=== PATIENT | female | born 1985 | race American Indian/Alaskan Native ===

== ENCOUNTER 2018-08-24 09:05 | Outpatient (CLI) | payer OTHER | END 2018-08-24 10:06 | disposition home or self-care (01) | LOC: NST 09:05 | DX: Z34.83 Encounter for supervision of other normal pregnancy, third trimester (principal) ==

== ENCOUNTER 2018-10-02 10:22 | Inpatient (IN) | payer OTHER ==
[~2018-10-02] VITALS: Ht 167.6 cm; Wt 91.6 kg
[2018-10-28] MEDS ORDERED: PRENATAL TABLE1 EAC1 PO (14:11)
== END 2018-10-31 12:06 | DRG 768 ==
LOC: OB/GYN 10-06 10:15 → LDR 10-28 13:23 → OB/GYN 10-29 01:58
PROVIDERS: ADMIT Obstetrics & Gynecology Maternal & Fetal Medicine
PROC: 10E0XZZ Delivery of Products of Conception, External Approach (ICD-10-PCS; principal; 2018-10-29)
PROC: 0DQR0ZZ Repair Anal Sphincter, Open Approach (ICD-10-PCS; 2018-10-29)
PROC: 4A0HXFZ Measurement of Products of Conception, Cardiac Rhythm, External Approach (ICD-10-PCS; 2018-10-29)
DX: O70.20 Third degree perineal laceration during delivery, unspecified (principal); Z37.0 Single live birth; Z3A.39 39 weeks gestation of pregnancy

== ENCOUNTER 2018-10-20 07:18 | Outpatient (CLI) | payer OTHER | END 2018-10-20 08:27 | disposition home or self-care (01) | LOC: NST 07:18 | DX: Z34.83 Encounter for supervision of other normal pregnancy, third trimester (principal) ==

== ENCOUNTER 2018-10-23 08:42 | Outpatient (CLI) | payer OTHER | END 2018-10-23 09:25 | disposition home or self-care (01) | LOC: NST 08:42 | DX: Z34.83 Encounter for supervision of other normal pregnancy, third trimester (principal) ==

== ENCOUNTER 2021-07-15 06:17 | Day surgery (SDC) | payer OTHER ==
[~2021-07-15 06:17] MED LIST: PRENATAL TABLE1 EAC1 PO
== END 2021-07-15 13:20 | disposition home or self-care (01) ==
LOC: CIR.AMB 06:17
PROVIDERS: ATTEND Obstetrics & Gynecology
DX: Z30.2 Encounter for sterilization (principal); Z20.822 Contact with and (suspected) exposure to COVID-19